=== PATIENT | male | born 1975 | race Caucasian/White ===

== ENCOUNTER 2017-04-27 18:42 | Emergency (ER) | payer SELFPAY ==
[~2017-04-27] VITALS: Ht 175.3 cm; Wt 86.7 kg
[2017-04-27 20:03] LABS: HEMATOCRIT 43.3 % (38.0-50.0); MCH 31.3 PG (29.0-34.0); MCHC 34.9 G/DL (30.0-36.0); MCV 89.6 FL (86-99); MEAN PLAT.VOLUME 9.6 uM^3 (9.0-12.4); PLATELET COUNT 276 K/uL (156-360); RBC DIS.WIDTH-CV 11.6 % (11.8-14.6); RED BLOOD COUNT 4.83 M/uL (4.00-5.50); WHITE BLOOD COUNT 11.9 K/uL (4.1-10.2)
[2017-04-27 20:12] LABS: CHLORIDE 106 mEq/L (99-109); POTASSIUM 3.5 mEq/L (3.7-5.4); SODIUM 141 mEq/L (136-147)
[2017-04-27 20:13] LABS: GLUCOSE 128 mg/dL (70-99)
[2017-04-27 20:15] LABS: ANION GAP 15 MEQ/L (2-14)
[2017-04-27 20:17] LABS: GFR ESTIMATE (CALCULATED) 51 mL/min/
[2017-04-27 20:18] LABS: UREA NITROGEN (BUN) 26 mg/dL (9-23)
[2017-04-27 22:17] VITALS: BP 152/94
== END 2017-04-27 22:18 | disposition home or self-care (01) ==
LOC: EME 18:42
DX: J06.9 Acute upper respiratory infection, unspecified (principal); I10 Essential (primary) hypertension; F17.200 Nicotine dependence, unspecified, uncomplicated; R07.9 Chest pain, unspecified
CPT/HCPCS: 71020; 80048; 85027; 99281; 99283

== ENCOUNTER 2017-08-26 10:18 | Emergency (ER) | payer SELFPAY ==
[~2017-08-26] VITALS: Ht 175.3 cm; Wt 94.1 kg
[2017-08-26 11:02] LABS: BASOPHIL COUNT 0.1 K/uL (0-0.1); EOSINOPHIL (%) 1.4 % (0-5); EOSINOPHIL COUNT 0.2 K/uL (0-0.3); HEMATOCRIT 44.4 % (38.0-50.0); IMMATURE GRANULOCYTE (%) 0.4 % (0.0-0.7); IMMATURE GRANULOCYTE COUNT 0.1 K/uL; INSTRUMENT ABS NEUTROPHIL CT 12.3 K/uL; LYMPHOCYTE COUNT 1.6 K/uL (1.0-2.8); MCHC 34.2 G/DL (30.0-36.0); MCV 90.6 FL (86-99); MEAN PLAT.VOLUME 9.3 uM^3 (9.0-12.4); MONOCYTE (%) 6.9 % (3-12); MONOCYTE COUNT 1.1 K/uL (0-0.8); NEUTROPHIL (%) 80.1 % (45-76); NEUTROPHIL COUNT 12.3 K/uL (1.8-6.4); PLATELET COUNT 235 K/uL (156-360); RBC DIS.WIDTH-CV 11.9 % (11.8-14.6); RBC DIS.WIDTH-SD 39.9 % (39-53); WHITE BLOOD COUNT 15.3 K/uL (4.1-10.2)
[2017-08-26 11:12] LABS: CHLORIDE 104 mEq/L (99-109); POTASSIUM 3.9 mEq/L (3.7-5.4); SODIUM 137 mEq/L (136-147)
[2017-08-26 11:15] LABS: GLUCOSE 108 mg/dL (70-99)
[2017-08-26 11:16] LABS: ANION GAP 8 MEQ/L (2-14)
[2017-08-26 11:17] LABS: TOTAL BILIRUBIN 0.9 mg/dL (0.0-1.0)
[2017-08-26 11:18] LABS: ALKALINE PHOSPHATASE 92 IU/L (3-129); GFR ESTIMATE (CALCULATED) > 59 mL/min/
[2017-08-26 11:19] LABS: UREA NITROGEN (BUN) 15 mg/dL (9-23)
[2017-08-26 11:25] LABS: TROP-I INTERPRETATION NEGATIVE; TROPONIN-I < 0.01 ng/mL (0.0-0.30)
[2017-08-26] MEDS ORDERED: AMLODIPINE BESYL5 MG PO (12:30)
[2017-08-26 12:42] VITALS: BP 180/125
== END 2017-08-26 12:44 | disposition home or self-care (01) ==
LOC: EME 10:18
PROVIDERS: Emergency Medicine
DX: J06.9 Acute upper respiratory infection, unspecified (principal); I10 Essential (primary) hypertension; R06.00 Dyspnea, unspecified; F17.210 Nicotine dependence, cigarettes, uncomplicated
CPT/HCPCS: 71275; 80053; 83880; 84484; 85025; 93005; 99281; 99284